=== PATIENT | female | born 1990 | race Caucasian/White ===

== ENCOUNTER 2017-07-20 17:45 | Emergency (ER) | payer OTHER ==
[~2017-07-20] VITALS: Ht 160 cm; Wt 70.2 kg
[~2017-07-20 17:45] MED LIST: ALLEGRA30 MG PO; CELEXA10 MG PO; LORAZEPAM0.5 MG PO; LOW-OGESTREL1 TABLET PO; ZOFRAN4 MG PO
[2017-07-20 19:07] LABS: HEMATOCRIT 37.2 % (36.0-46.0); HEMOGLOBIN 12.8 G/DL (11.9-15.5); MCH 31.1 PG (29.0-34.0); MCHC 34.4 G/DL (30.0-36.0); MCV 90.3 FL (83-99); PLATELET COUNT 248 K/uL (156-360); RBC DIS.WIDTH-CV 11.9 % (11.8-14.6); RED BLOOD COUNT 4.12 M/uL (3.80-5.20); WHITE BLOOD COUNT 4.8 K/uL (4.1-10.2)
[2017-07-20 19:15] LABS: CHLORIDE 104 mEq/L (99-109); POTASSIUM 3.3 mEq/L (3.7-5.4); SODIUM 138 mEq/L (136-147)
[2017-07-20 19:16] LABS: GLUCOSE 106 mg/dL (70-99)
[2017-07-20 19:20] LABS: CREATININE 0.8 mg/dL (0.6-1.3); GFR ESTIMATE (CALCULATED) > 59 mL/min/
[2017-07-20 19:21] LABS: UREA NITROGEN (BUN) 8 mg/dL (9-23)
[2017-07-20 19:29] LABS: QUANTITATIVE HCG < 4.0 MIU/ML
[2017-07-20] MEDS ORDERED: MOTRIN600 MG PO (20:55)
[2017-07-20 21:34] VITALS: BP 115/80
== END 2017-07-20 21:35 | disposition home or self-care (01) ==
LOC: EME 17:45
PROVIDERS: Physician Assistant
DX: R07.9 Chest pain, unspecified (principal); R91.8 Other nonspecific abnormal finding of lung field; F41.9 Anxiety disorder, unspecified
CPT/HCPCS: 71046; 71275; 80048; 84702; 85027; 85379; 93005; 99281; 99285; J8540